=== PATIENT | male | born 1990 | race Caucasian/White ===

== ENCOUNTER 2024-06-30 00:14 | Day surgery (SDC) | payer OTHER, SELFPAY ==
[2024-06-16 12:42] VITALS: BMI 29.0
--- NOTE | 2024-06-16 12:51 | PC.NURSE ---
Report to the Outpatient Waiting Room, entrance under the green pavilion located off [facility], at time _0600_ on date _[id number]_. Planned Procedure Time: _0730_.? Time changes happen often and if your time is changed the preop area will call you the afternoon before. - You and your visitor will be asked to self-screen and do not enter if you have any COVID symptoms. Please call surgeon if you need to reschedule. - A mask is optional within the hospital at this time. Patients may have clear liquids (water, carbonated beverages, clear teas, apple juice) until 3 hours prior to surgery with a maximum of 20 ounces. - No food from midnight until time of surgery and no smoking. This includes no chewing gum, candy or mints. Take only the following medications with a SIP of water on the morning of surgery: None DO NOT STOP ANY OF YOUR OTHER PRESCRIPTION MEDICATIONS PRIOR TO SURGERY EXCEPT THE FOLLOWING Medications to discontinue per physician None Date to take last dose Please no make-up, nail latvian, hairspray, perfume, deodorant, or body powder the day of surgery.? No jewelry (including any body piercings) or valuables the day of surgery, leave them at home.? Please take a shower or bath the night before, or the morning of, surgery with an antibacterial soap.? Wear comfortable, loose fitting clothing.? - Jewelry must be removed prior to entering the operating room.? Rings and piercings that are not removed may be cut off. - The hospital will not accept responsibility for valuables.? - Please leave all valuables, including medications, at home the day of surgery. If you are going home after surgery, a licensed hole digger truck driver must drive you home.? - NO public transportation without another adult if you receive anesthesia. - We recommend that an adult stay with you for 24 hours following discharge. - We also recommend that you do not drive, make important decision, drink alcoholic beverages, or take any drugs that were not prescribed by your health care provider for at least 24 hours after your discharge time. Follow any additional instructions given to you from your surgeon. Telephone instructions given to __Ethan__and asked if any additional questions and then verbalized understanding. Patient advised to call surgeon office or pre surgery nurse liaison [phone] if any additional questions.
[2024-06-30] VITALS (7 sets, daily range): BP systolic 118–139; BP diastolic 67–88; PULSE 67–86; RESP 16–20; TEMP 36.1–36.7; O2SAT 98–100
[2024-06-30] MEDS: ACETAMINOPHEN 500 MG TABLET 1000 MG PO (06:50)
[2024-06-30] MEDS: LACTATED RINGERS 1,000 ML 30 ML IV CONT (06:52)
[2024-06-30] MEDS: KETOROLAC 15 MG/ML VIAL (*BKC) IV PUSH ×2 (07:00→08:10)
--- NOTE | 2024-06-30 07:17 | P.HP_ITS ---
H&P: HPI History of Present Illness Date/Time: 06/30/24 07:17 Chief Complaint: Umbilical hernia Narrative: Pt presents with 6 month hx of umbilical hernia that is mildly symptomatic with soreness. No prior abd surgery or hernia repair. Review of Systems Review of Systems: The remainder of the review of systems to include constitutional, HEENT, cardiovascular, respiratory, GI, , integumentary, musculoskeletal, endocrine, immunologic, hematologic, psychiatric, and neurologic are all negative except for which is mentioned above in the HPI. [facility] Surgical History Surgical History H/O vasectomy Social History Social History Smoking status: Never smoker Alcohol intake: current Drinks per week: 2 Substance use type: marijuana Other substance usage details: Gummy 2 or 3 times a week. Do You Feel Safe in your Home?: No Lack of Transportation: No Lack of Food: Never True Current Housing: I Have Housing Concerned About Future Housing: No Difficulty Paying Gas/Electric Bills: No Difficulty Paying for Meds: No Currently Unemployed: No Education: Bachelor's Degree Difficulty w/ Childcare or Family Care: No Living arrangements: with family Spiritual care concerns: No Meds Home Medications and Allergies Home Medications ?Medication ?Instructions ?Recorded ?Confirmed ?Type No Home Medications 05/16/24 06/16/24 History Allergies Allergy/AdvReac Type Severity Reaction Status Date / Time No Known Allergies Allergy Verified 06/30/24 06:48 Vital Signs Vital Signs - 24 hr 06/30/24 06:30 Temperature 36.1 C L Pulse Rate 75 Respiratory Rate 20 Blood Pressure 136/80 Pulse Oximetry 98 Oxygen Delivery Room Air Exam Const: General: comfortable and no acute distress HENMT: Ears: TM's normal bilaterally Face/Nose/Sinus: Normal nares present Mouth: Yes moist mucous membranes Eyes: General: appearance normal, both eyes and all related structures Sclera: sclerae normal Pupils: Equal, round and reactive pupils present EOM: EOMs intact bilaterally Neck: Neck: supple and no JVD Resp: Effort & Inspection: normal respiratory effort Auscultation: clear to auscultation bilaterally Cardio: Rate: regular rate Rhythm: regular rhythm GI: Other: Incarcerated umbilical hernia with defect measuring approximately 1cm. No diastasis. No other ventral hernias or masses. Skin: General skin exam: normal color and no rashes or lesions noted Neuro: General: gait normal Speech: normal speech Motor exam (neuro): 5/5 motor strength present throughout Sensory Exam: normal sensation Extrem: General: normal to inspection Psych: Mental Status: mental status grossly normal Affect: normal affect Assessment and Plan Assessment and plan (1) Umbilical hernia with obstruction, without gangrene: Code(s): K42.0 - Umbilical hernia with obstruction, without gangrene Status: Acute Assessment and Plan: Patient has a incarcerated umbilical hernia that is becoming increasingly symptomatic. Discussed the option of proceeding with open incarcerated umbilical hernia repair without mesh to be performed in the OR under anesthesia choice as an outpatient. The surgery was explained in detail including description, risks, benefits, post-operative restrictions, anticipated recovery, and expected outcome. Questions answered and he would like to proceed as discussed.
--- NOTE | 2024-06-30 07:20 | WPDHPUPDATE1 ---
History and Physical Update Update Date/Time: 06/30/24 07:20 History and Physical has been reviewed, including an updated exam of the patient. There are NO changes in the patient's condition. Risks, benefits, and alternatives have been discussed and questions answered. Patient agrees to proceed with procedure.
--- NOTE | 2024-06-30 07:22 | P.PNAN_ITS ---
Anes - Initial Pre Proc Eval Procedure: Operation Date: 06/30/24 07:30 Proposed Procedures p Open Incarcerated Umbilical Hernia Repair - Hermelindo Ayala MD Date/Time: 06/30/24 07:22 Surgeon: Hermelindo Ayala MD Pre Op Diagnosis: Incarcerated Umbilical Hernia (1cm) Patient Data Age: 33 Gender: M Height: 1.7 m Weight: 83.1 kg Last Vital Signs Temp 96.9 F L 06/30/24 06:30 Pulse 75 06/30/24 06:30 Resp 20 06/30/24 06:30 BP 136/80 06/30/24 06:30 Pulse Ox 98 06/30/24 06:30 O2 Del Method Room Air 06/30/24 06:30 Allergies Allergy/AdvReac Type Severity Reaction Status Date / Time No Known Allergies Allergy Verified 06/30/24 06:48 Home Medications ?Medication ?Instructions ?Recorded ?Confirmed ?Type No Home Medications 05/16/24 06/16/24 History Patient hx anesthesia problems: none Family hx anesthesia problems: none Results Review: All pre-operative results and documents have been reviewed as part of the pre- operative evaluation. [facility] Surgical History Surgical History H/O vasectomy Social History Social History Smoking status: Never smoker Alcohol intake: current Drinks per week: 2 Substance use type: marijuana Other substance usage details: Gummy 2 or 3 times a week. Do You Feel Safe in your Home?: No Lack of Transportation: No Lack of Food: Never True Current Housing: I Have Housing Concerned About Future Housing: No Difficulty Paying Gas/Electric Bills: No Difficulty Paying for Meds: No Currently Unemployed: No Education: Bachelor's Degree Difficulty w/ Childcare or Family Care: No Living arrangements: with family Spiritual care concerns: No Anes - Eval Final PreProcedure Day of Procedure 06/30/24 07:22 Patient weight: normal Heart: regular rate and rhythm Lungs: clear to auscultation Airway: Mallampati scale class II Neurological: alert and oriented Last oral intake: >/= 8 hours ASA classification: I Emergent: no Anesthetic plan: proceed Anesthesia type and monitoring: general LMA and standard monitoring Results Review: All pre-operative results and documents have been reviewed as part of the pre- operative evaluation. Informed Consent: The patient's anesthetic plan and its attendant risks and benefits were discussed with the patient/family/POA. Questions were solicited and answers provided to the satisfaction of the patient/family/POA.
[2024-06-30] MEDS: ceFAZolin 2 GM/D5W 50 ML 2 GM/50 ML BAG IVPB (07:30)
[2024-06-30] MEDS: BUPivacaine HCL 0.5% PF 30 ML VIAL INFILTRATE (07:43)
[2024-06-30] MEDS: LIDO 1%/EPINEPHRINE 1:100,000 50 ML VIAL 30 ML INFILTRATE (07:46)
--- NOTE | 2024-06-30 08:37 | P.OP_ITS ---
Procedure Note - Detailed Date of Procedure 06/30/24 Pre-op Diagnosis Incarcerated Umbilical Hernia (1cm) Post-op Diagnosis Same Procedure Performed Open incarcerated umbilical hernia repair without mesh. Surgeon Hermelindo Ayala MD [employer] ROBERT Amaral Anesthesia General Indications Patient is a 33-year-old male who presented with a herniated umbilicus which was slowly enlarging and becoming a little more uncomfortable. No bowel obstructive-type symptoms. On examination he appeared to have an AA incarcerated umbilical hernia likely with either omentum or preperitoneal fat. Presents now for elective repair of the incarcerated umbilical hernia without mesh. Findings The patient's fascial defect at the umbilicus was 1cm. Incarcerated contents of the hernia was preperitoneal fat. The preperitoneal fat was resected and d iscarded. The defect was then closed primarily with permanent suture. Description of Procedure After informed consent was obtained patient was brought to the operating room was placed supine position and general LMA anesthesia was administered. The abdomen was then prepped and draped usual sterile fashion. A time-out was then performed correctly identifying the patient as well as the procedure to be performed. He was given perioperative IV antibiotics. I then started by making a small curved incision along the upper portion of the umbilical skin fold. Dissection was carried sharply down through the dermis of the skin with a scalpel. The electrocautery was then used to dissect down around the incarcerated contents coming through the hernia defect. I followed this down to the fascial defect at the abdominal wall and then resected the protruding preperitoneal fat which was not reducible. This tissue was discarded. The defect was approximately 1cm in diameter. There was no need to divide the umbilical stalk. The defect was then closed primarily with 4 separate 0 Ethibond sutures getting about 1cm of good fascia on either side of the defect with the suture. The defect closed easily without any tension. I then irrigated out the incision sterile saline solution hemostasis was good. I then injected 0.5% Marcaine mixed with 1% lidocaine the subcutaneous tissues around the incision. The incision was then closed utilizing layers of interrupted 3-0 Vicryl sutures in the subcutaneous tissues. The skin edges were approximated utilizing a running subcuticular 4-0 Monocryl suture. The incision was then cleaned the skin glue was applied and a 4x4 gauze placed in the umbilicus for pressure dressing. The patient tolerated the procedure well no complications. All sponges, needles, and instrument counts were correct at the end procedure. EBL was _ 5 __cc. The patient was awakened and taken to recovery in stable and satisfactory condition. Implants None Estimated Blood Loss 5 Drains No Packing No Pathology None sent Complications No immediate complications Condition Stable Disposition PACU [facility] Billing Surgery - Charge Forward: Surgery Billing
== END 2024-06-30 09:49 | disposition home or self-care (01) ==
PROVIDERS: Visit Provider Surgery
PROC: (CPT 49592; principal; 2024-06-30 07:30)
DX: K42.0 Umbilical hernia with obstruction, without gangrene (principal); F12.90 Cannabis use, unspecified, uncomplicated; Z98.890 Other specified postprocedural states
CPT/HCPCS: 49592; A9270; J0690; J1100; J1885; J2003; J2004; J2250; J2405; J2704; J3010; J7120